=== PATIENT | female | born 1955 | race Caucasian/White ===

== ENCOUNTER → 2016-03-31 | Outpatient (CLI) | payer BC ==
[~2016-03-31] MED LIST: AMLO-114 PO; ASPI-232 PO; CHOL100010 PO; CYAN100048 PO; GLC500 PO; LEVO88TA PO; MULTCAP42 PO; OPTIRAY 320 IV PRN; PRAM0.755 PO; VENL-273 PO; ZCR20 PO
--- NOTE | 2016-03-31 13:15 | DIAGNOSTIC IMAGING REPORT ---
CT OF THE ABDOMEN AND PELVIS WITH CONTRAST CLINICAL HISTORY: Abdominal pain and diarrhea. Change in bowel habits. COMPARISON STUDY: None. TECHNIQUE: Following IV administration of 93 mL of Optiray-320, axial images of the abdomen and pelvis were obtained from the lung bases to the proximal femurs. Images were reviewed in the axial, sagittal, and coronal planes. IV contrast was administered without complication. Oral contrast was administered. CT DOSE: 1028.86 mGycm FINDINGS: Visualized portions of the lower chest demonstrate mild cardiomegaly. There is a 2.5 cm nodular focus of prominent soft tissue within the lower outer quadrant of the right breast shown on axial image 50 of 511. There is fatty infiltration of the liver. The spleen, adrenal glands, right kidney and pancreas are normal. A 1.8 cm left renal cyst is noted. There is no hydronephrosis. There is no evidence for a bowel obstruction. There is a moderate amount of stool within the colon and rectum. The appendix is normal. There is mild colonic diverticulosis without evidence for acute diverticulitis. No lymphadenopathy is present. Skeletal structures are unremarkable. IMPRESSION: 1. No acute process within the abdomen or pelvis. 2. Moderate amount of stool within the colon. 3. 2.5 cm nodular focus of prominent soft tissue within the lower outer quadrant of the right breast. This likely reflects normal breast tissue although follow-up mammogram and ultrasound are recommended to exclude a neoplastic process. 4. Fatty infiltration liver. 5. Mild cardiomegaly. Electronically signed by: Saroj Marshall M.D. 03/31/2016 1:13 PM Dictated Date/Time: 03/31/2016 1:01 PM
== END | disposition home or self-care (01) ==
LOC: C.CTS 11:48
PROVIDERS: ATTEND Internal Medicine
DX: R19.4 Change in bowel habit (principal); R10.32 Left lower quadrant pain; K76.0 Fatty (change of) liver, not elsewhere classified

== ENCOUNTER → 2016-05-12 | Outpatient (CLI) | payer BC ==
[~2016-05-12] MED LIST changes: -OPTIRAY 320 IV PRN
--- NOTE | 2016-05-14 13:33 | MAMMOGRAPHY REPORT ---
BILATERAL DIGITAL SCREENING MAMMOGRAM WITH CAD: 05/12/2016 CLINICAL HISTORY: Routine screening examination. An abdomen and pelvis CT dated 03/31/2016 detected an incidental finding of a "2.5 cm nodular focus of prominent soft tissue within the lower outer qu adrant of the right breast for which additional mammogram and ultrasound were recommended". TECHNIQUE: Bilateral CC and MLO views were obtained. Current study was also evaluated with a Comput er Aided Detection (CAD) system. COMPARISON: Comparison is made to exams dated: 10/13/2014 mammogram, 09/14/2012 mammogram, 09/15/2013 mammogram, 09/10/2011 mammogram - [facility], 07/23/2010 mammogram, and 07/25/2009 [facility]gram - [facility] BREAST COMPOSITION: There are scattered areas of fibroglandular density in both breasts. FINDINGS: There are a few stable benign-appearing micro-calcifications within the right breast. The re is a 6 mm nodular asymmetry in the medial, middle to posterior left breast on the CC view, though t to project inferiorly on the MLO view, for which additional spot compression tomosynthesis views a re recommended. No other new suspicious mass, architectural distortion or cluster of microcalcifications is seen. IMPRESSION: ACR BI-RADS CATEGORY 0: INCOMPLETE EVALUATION: NEED ADDITIONAL IMAGING EVALUATION 1. A recent CT abdomen and pelvis report recommended additional mammogram and ultrasound for a 2.5 cm nodular focus of prominent soft tissue in the far inferior lateral right breast. The far inferio r location may not be definitely included on the current MLO view and additional mammographic views and ultrasound are recommended for complete evaluation. 2. At the time of additional workup for the CT finding in the right breast, additional spot lynette naya tomosynthesis views and possibly ultrasound are recommended for nodular asymmetry seen in the m edial left breast. The patient will be called to schedule an appointment. Approximately 10% of breast cancers are not detected with mammography. A negative mammographic repor t should not delay biopsy if a clinically suggestive mass is present. Liz Galloway M.D. ay/:05/13/2016 16:35:55 Network Systems Administrator: Deonna Quan RT(R)(M), [facility] letter sent: Addl Imaging 0 BI-RADS Code: ACR BI-RADS Category 0: Incomplete Evaluation: Need Additional Imaging Evaluation
== END | disposition home or self-care (01) ==
LOC: C.MAMM 14:36
PROVIDERS: ATTEND Family Medicine
DX: Z12.31 Encounter for screening mammogram for malignant neoplasm of breast (principal); N64.89 Other specified disorders of breast

== ENCOUNTER → 2016-05-26 | Outpatient (CLI) | payer BC ==
--- NOTE | 2016-05-26 13:47 | MAMMOGRAPHY REPORT ---
BILATERAL DIGITAL DIAGNOSTIC MAMMOGRAM TOMOSYNTHESIS AND TARGETED BILATERAL ULTRASOUND: 05/26/2016 CLINICAL HISTORY: 61-year-old woman found to have a 2.5 cm a area of density in the inferior right b reast that was incidentally identified on a CT of the abdomen and pelvis. Also called back from scr eening for a newly visualized 7 mm mass in the medial left breast. TECHNIQUE: Spot compression CC and MLO 2-D digital and tomosynthesis images of each breast were obt ained. COMPARISON: Comparison is made to exams dated: 05/12/2016 mammogram, 10/13/2014 mammogram, 09/15/2013 mammogram, 09/14/2012 mammogram, 09/10/2011 ultrasound - [facility], and 07/23/2010 ma mmogram - [facility]. BREAST COMPOSITION: There are scattered areas of fibroglandular density in both breasts. FINDINGS: Spot compression views of the right breast demonstrate a vague bandlike asymmetry in the i nferior and posterior breast on the spot compression MLO view measuring 12 x 28 mm. This is less ev ident on the spot compression CC view including tomosynthesis images. However, the location correla dennis with the incidental finding seen on recent abdomen and pelvis CT and further characterization wi ultrasound was performed. No focal area of architectural distortion or suspicious microcalcifica tions are identified within the right breast. Spot compression views of the left breast demonstrate a lobulated rounded 7 mm mass with partially c ircumscribed borders in the medial left breast. This mass is less evident on the spot compression M LO views including tomosynthesis images. There is no associated spiculation or clustered microcalci fication. Further evaluation with ultrasound was performed. Real-time high-resolution sonographic evaluation was performed in the inferior right breast and medi al left breast. There is an island of dense glandular tissue with interspersed tubular milked ducts in the 7:00 right breast, 4 cm from the nipple, measuring approximately 24.3 x 7.6 x 13.3 mm. This correlates with the asymmetry seen on the spot compression right MLO view and is also thought to co rrelate with the CT finding. This is indeterminate and further evaluation with an ultrasound-guided core biopsy is recommended to exclude an infiltrative process. In the left 9:00 breast, 5 cm from the nipple, there is a small cluster of microcysts versus a cyst with multiple thin internal nonvasc ular septation. This measures approximately 3.8 x 4.7 x 6.9 mm and correlates well with the mammogr aphic mass. This is probably benign but a short interval follow-up targeted ultrasound is recommend ed to ensure stability in 6 months, pending benign pathology results and the right breast. IMPRESSION: ACR BI-RADS CATEGORY 4: SUSPICIOUS, TARGETED ULTRASOUND ACR BI-RADS CATEGORY 4: SUSPICI OUS 1. There is a vague 28 x 12 mm bandlike asymmetry in the inferior right breast mammographically, an d an island of dense glandular tissue in the 7:00 axis of the right breast on ultrasound that are th ought to correlate with the incidental CT finding. Ultrasound guided core needle biopsy of this are a is recommended to exclude an infiltrative process. 2. Pending benign pathology results, a short interval follow-up left mammogram including repeat tar geted ultrasound in the 9:00 axis is recommended to ensure stability of a probable cluster of microc ysts identified on ultrasound which is thought to correlate with a newly visualized mammographic mas s. These results and recommendations were discussed with the patient at the time of the exam. She tent atively scheduled the right breast biopsy and left breast follow-up appointment prior to leaving our department. Approximately 10% of breast cancers are not detected with mammography. A negative mammographic repor t should not delay biopsy if a clinically suggestive mass is present. Liz Galloway M.D. ay/:05/26/2016 12:31:37 Senior Portfolio Analyst: Nayana BUTTERFIELD(Ngoc)(M), [facility] letter sent: Abnormal 4/5 BI-RADS Code: ACR BI-RADS Category 4: Suspicious Ultrasound BI-RADS: ACR BI-RADS Category 4: Suspic ious
== END | disposition home or self-care (01) ==
LOC: C.MAMM 08:37
PROVIDERS: ATTEND Family Medicine
DX: N64.89 Other specified disorders of breast (principal); N63 Unspecified lump in breast

== ENCOUNTER → 2016-06-06 | Outpatient (CLI) | payer BC ==
--- NOTE | 2016-06-06 09:42 | Discharge Instructions ---
Discharge Instructions Procedure Procedure Date: Jun 06, 2016. Reason for visit: Right Asymmetry. Discharge Discharge Date: Jun 06, 2016. Discharge Diagnosis: post right breast ultrasound guided core biopsy Medications Restart Stopped Medication(s): May restart Aspirin today, as long as not bleeding through bandages Instructions Activity Recommendations: Additional Limitations (see below) Return to School/Work: no limitations Recommended Home Diet: No Limitations Provider Instructions: ACTIVITY RECOMMENDATIONS: * No lifting, pushing, pulling or exercising the affected side for three days. RETURN TO SCHOOL/WORK: * You may return to work/school after the procedure, but do not perform any strenuous activities for 24 to 48 hours. MEDICATIONS: * Tylenol (two 325 mg) every four to six hours if needed for mild pain (if not allergic to Tylenol). DIET: * Resume previous diet. SPECIAL CARE INSTRUCTIONS: * Keep biopsy site dry for 24 hours. May shower after 24 hours, but do not soak (bathe) incision. * May remove Tegaderm (plastic patch) tomorrow AFTER showering. * Leave the steri-strips on for one week. Allow the steri-strips to fall off by themselves. If not off after one week, you may remove them. You may place a Bandaid crosswise over the strips, if desired. * Apply ice 10 minutes on and 10 minutes off as needed. * Wear a bra at bedtime to sleep more comfortably for 2-3 days. * Your referring physician should have the results after approximately 5 to 7 business days. * Call for unusual bleeding, fever, drainage, etc or if you have any questions call [phone] during normal business hours or after hours call Dr Galloway, . FOLLOW UP VISIT: Follow-up with Referring Physician as scheduled. Allergies Coded Allergies: No Known Allergies (Unverified , 12/05/14) Juana Bernard Recommendations: Call your doctor if: * Temperature above 101 degrees * Pain not relieved by pain medicine ordered * There is increased drainage or redness from any incision * You have any unanswered questions or concerns. Your Doctors Instructions noted above were prepared by provider Lzi Galloway. Patient Signature Section: Patient Instructions Signature Page Krystal Garcia Patient (or Guardian) Signature/Date: I have read and understand the instructions given to me by my caregivers. Caregiver/RN/Doctor Signature/Date: The above-named patient and/or guardian has received patient instructions on this date. + Original Patient Signature Page (only) stays with chart. Please make copy for patient.
--- NOTE | 2016-06-06 14:32 | MAMMOGRAPHY REPORT ---
UNILATERAL RIGHT DIGITAL DIAGNOSTIC MAMMOGRAM TOMOSYNTHESIS: 06/06/2016 CLINICAL HISTORY: Status post ultrasound-guided core biopsy of an asymmetry in the 7:00 right breast . Please refer to the report from right breast ultrasound guided core biopsy performed at the [facility] for full detail. IMPRESSION: POST PROCEDURE IMAGING FOR MARKER PLACEMENT Please refer to the report from right breast ultrasound guided core biopsy performed at the [facility] for full detail. Approximately 10% of breast cancers are not detected with mammography. A negative mammographic repor t should not delay biopsy if a clinically suggestive mass is present. Liz Galloway M.D. ay/:06/06/2016 09:34:31 Embedded Firmware Developer: Samanta JAMA)(M), [facility] BI-RADS Code: Post Procedure Imaging For Marker Placement
--- NOTE | 2016-06-06 14:32 | MAMMOGRAPHY REPORT ---
THIS REPORT HAS BEEN AMENDED. ULTRASOUND GUIDED BIOPSY RIGHT BREAST: 06/06/2016 CLINICAL HISTORY: Focal asymmetry in the inferior right breast seen incidentally on recent CT of the abdomen and pelvis, with probable sonographic correlate identified in the 7:00 right breast. Roopa andujar presents for ultrasound guided core needle biopsy. COMPARISON: Comparison is made to exams dated: 05/26/2016 ultrasound, 05/26/2016 mammogram, 05/12/2016 m ammogram, 10/13/2014 mammogram, 09/15/2013 mammogram, and 09/14/2012 mammogram - [facility]. PATIENT CONSENT: The procedure, risks and benefits were discussed with the patient and informed writ ten consent was obtained. Specific risks to this procedure include: bleeding, infection, puncture of adjacent structure, nontarget biopsy, sampling error, metal allergy and medication reaction. PROCEDURE DESCRIPTION: A time out was performed and the right breast was agreed as the site of biops y. The skin was prepped and draped in the usual sterile fashion. The island of glandular tissue and with prominent internal milk ducts in the 7:00 right breast was chosen as the target for biopsy. Sub cutaneous and intraparenchymal 1% buffered lidocaine, with and without epinephrine, was administered as local anesthesia. A skin incision was made. Through the incision, 3 samples were taken with a 1 2 gauge Celero biopsy device. A metallic marker was placed at the biopsy site. Hemostasis was achiev ed after manual compression. The patient tolerated the procedure well and there was no immediate com plication. The patient left the department in satisfactory condition. The samples were sent to [facility] in an appropriately labeled container. Postprocedure right CC and ML tomosynthesis images were obtained. There is a new ribbon-shaped meta llic biopsy marker overlying with the asymmetry seen in the inferior right breast mammographically. No significant postbiopsy hematoma is identified. Pathology is pending. IMPRESSION: ULTRASOUND GUIDED BIOPSY Status post ultrasound-guided core needle biopsy of a focal asymmetry in the 7:00 right breast, with biopsy marker placed at the site. Pending benign pathology results, follow-up diagnostic mammograms and repeat targeted ultrasound in the left breast are recommended to ensure stability of a probable cyst cluster seen on recent workup . The patient will receive notification of the biopsy results from her referring physician. Liz Galloway M.D. ay/:06/06/2016 09:45:45 Bobtailer: Samanta JAMA)(Clarissa), [facility] AMENDMENT: 06/20/2016 Liz Galloway M.D. Pathology results from the ultrasound-guided needle biopsy of an asymmetry in the 7:00 right breast yielded fibrocystic change and usual ductal hyperplasia. Negative for DCIS and invasive carcinoma. The pathology results are concordant with the imaging appearance. As per previous diagnostic mammogram report, a short interval follow-up diagnostic left mammogram in cluding repeat targeted ultrasound in the 9:00 axis is ready to ensure stability of a benign-appeari ng mammographic mass thought to correlate with a cluster of microcysts on ultrasound.
== END | disposition home or self-care (01) ==
LOC: C.MAMM 08:22
PROVIDERS: ATTEND Family Medicine
DX: N64.89 Other specified disorders of breast (principal); N60.91 Unspecified benign mammary dysplasia of right breast

== ENCOUNTER → 2016-12-09 | Outpatient (CLI) | payer BC ==
--- NOTE | 2016-12-10 08:11 | MAMMOGRAPHY REPORT ---
BILATERAL DIGITAL DIAGNOSTIC MAMMOGRAM TOMOSYNTHESIS WITH CAD AND TARGETED LEFT ULTRASOUND: 12/09/2016 CLINICAL HISTORY: 61-year-old woman presents 6 months after benign right breast ultrasound guided cor e biopsy. Also to follow-up a probably benign cluster of microcysts in the 9:00 left breast. TECHNIQUE: Bilateral CC and MLO 2-D and tomosynthesis images, spot compression left CC and MLO tomos ynthesis images with a small paddle were performed. Current study was also evaluated with a Computer Aided Detection (CAD) system. COMPARISON: Comparison is made to exams dated: 05/26/2016 mammogram, 05/12/2016 mammogram, 10/13/2014 ma mmogram, 09/15/2013 mammogram, 09/14/2012 mammogram, and 08/11/2011 mammogram - [facility]. BREAST COMPOSITION: There are scattered areas of fibroglandular density in both breasts. FINDINGS: There is a persistent oval circumscribed 7.3 x 5.6 x 5.7 mm mass in the 9:00 middle one th ird of the left breast. No associated architectural distortion or calcification. A possible area of architectural distortion is identified in the medial posterior left breast on the CC view (tomosynth esis slice 38), for which additional spot compression tomosynthesis views were obtained. The area of possible distortion is thought to persist with the spot compression left CC view but not definitely seen on the spot compression MLO view or the full field MLO view. This remains indeterminate and opt ions of short follow-up tomosynthesis mammograms versus tissue sampling were discussed with the patie nt. We will opt to biopsy this area using a 3-D stereotactic biopsy device. Targeted ultrasound was performed in the medial left breast to assess for the right wrist this cluste r identified on prior ultrasound, and also to assess for any possible areas of architectural distorti on, to correspond with the possible mammographic distortion. In the 9:00 axis, 5 cm from the nipple, there is a microcyst cluster measuring 4.5 x 4.6 mm. No other discrete solid or cystic mass or area of architectural distortion is appreciated in real-time scanning within the lower inner or upper inn er quadrant of the left breast. IMPRESSION: ACR BI-RADS CATEGORY 4: SUSPICIOUS, TARGETED ULTRASOUND ACR BI-RADS CATEGORY 4: SUSPICIO US 1. There is a stable circumscribed 7.3 mm mammographic mass in the 9:00 left breast, to correlate wi th a microcyst cluster on ultrasound. This is stable compared to the prior mammograms and ultrasound and is considered benign. 2. However, there is a possible focal area of architectural distortion in the medial posterior left breast, only seen on the cc tomosynthesis images, without sonographic correlate identified. This are a of questionable distortion remains indeterminate, and further characterization with a 3-D stereotac tic guided biopsy is recommended. 3. Stable postbiopsy changes in the right breast, without mammographic evidence of malignancy. Jose Martin mmend routine right mammography in 1 year. These results and recommendations were discussed with the patient at the time of the exam. She tenta tively scheduled the left breast 3-D stereotactic biopsy prior to leaving our department. Approximately 10% of breast cancers are not detected with mammography. A negative mammographic report should not delay biopsy if a clinically suggestive mass is present. Liz Galloway M.D. ay/:12/09/2016 14:52:54 Product Accountant: Samanta BUTTERFIELD(R)(M), [facility] letter sent: Abnormal 4/5 BI-RADS Code: ACR BI-RADS Category 4: Suspicious Ultrasound BI-RADS: ACR BI-RADS Category 4: Suspici ous
== END | disposition home or self-care (01) ==
LOC: C.MAMM 13:24
PROVIDERS: ATTEND Physician Assistant
DX: N63 Unspecified lump in breast (principal); R92.8 Other abnormal and inconclusive findings on diagnostic imaging of breast; Z98.890 Other specified postprocedural states

== ENCOUNTER → 2016-12-24 | Outpatient (CLI) | payer BC ==
--- NOTE | 2016-12-25 13:53 | MAMMOGRAPHY REPORT ---
STEREOTACTIC GUIDED BIOPSY: 12/24/2016 CLINICAL HISTORY: 61-year-old woman with possible architectural distortion in the medial posterior le ft breast, best seen on the CC view. The supplemental spot compression tomosynthesis images were equ ivocal for persistent distortion, and no sonographic correlate was identified. She presented for pos sible tissue sampling with stereotactic tomosynthesis guided biopsy. COMPARISON: Comparison is made to exams dated: 12/09/2016 ultrasound, 12/09/2016 mammogram, 06/06/2016 mammogram, 06/06/2016 ultrasound biopsy, and 05/26/2016 ultrasound - [facility]. PATIENT CONSENT: After explaining the risks, benefits and alternatives of the procedure to the patien t, informed consent was obtained both verbally and in writing. Specific risks include: Bleeding, inf ection, puncture of adjacent structure, pain, nontarget biopsy, sampling error, metal allergy and med ication reaction. PROCEDURE DESCRIPTION: The patient was placed prone on the stereotactic biopsy table and the left buster ast was placed in CC from above compression. A client support representative tomosynthesis image was obtained and the previo usly observed possible area of architectural distortion in the medial posterior breast does not persi st on the additional tomosynthesis images obtained today. Therefore, the stereotactic guided biopsy was canceled and given that this possible distortion most likely represented overlapping Wilber's lig aments, a short interval follow-up diagnostic tomosynthesis mammogram is recommended to ensure stabil ity in 6 months. IMPRESSION: STEREOTACTIC GUIDED BIOPSY Canceled left breast stereotactic 3-D guided biopsy given that the architectural distortion was no lo nger identified and likely represented overlapping Wilber's ligaments. A short interval follow-up left diagnostic tomosynthesis mammogram and possible ultrasound is recomme nded to ensure stability in 6 months. These recommendations were discussed with the patient on 12/24 and she tentatively scheduled her follow-up appointment prior to leaving our department. Liz Galloway M.D. ay/:12/24/2016 16:03:08 Stiff Leg Derrick Operator: Deonna JAMA)(M), [facility]
== END | disposition home or self-care (01) ==
LOC: C.MAMM 14:23
PROVIDERS: ATTEND Physician Assistant
DX: R92.8 Other abnormal and inconclusive findings on diagnostic imaging of breast (principal)